=== PATIENT | female | born 1980 | race African-American/Black ===

== ENCOUNTER 2020-10-30 12:19 | Inpatient (IN) | payer MEDICAID ==
[~2020-10-30] VITALS: Ht 170.2 cm; Wt 68.0 kg
[2020-10-30] MEDS ORDERED: ONDANSETRON HCL 4MG/2ML INJ IV ONE (12:45)
[2020-10-30] MEDS ORDERED: AZITHROMYCIN 500 MG in DEXT 5% WATER 250 ML IV ONE (12:45)
[2020-10-30] MEDS ORDERED: DEXAMETHASONE 10 MG/ML VIAL IV ONE (12:45)
[2020-10-30] MEDS ORDERED: CEFTRIAXONE 1 G PREMIX 50 ML IV ONE (12:45)
[2020-10-30] MEDS ORDERED: SODIUM CHLORIDE 0.9% 1,000 ML IV ONE (12:45)
[2020-10-30 13:04] LABS: BASOPHILS % 0.6 % (0.0-2.0); EOSINOPHILS % 0.6 % (0.0-5.0); HEMATOCRIT. 42.9 % (36.0-48.0); HEMOGLOBIN. 14.3 g/dL (12.0-16.0); LYMPHOCYTES % 24.8 % (20.0-50.0); MEAN CORPUSCULAR HEMOGLOBIN 29.1 pg (28.0-32.0); MEAN CORPUSCULAR VOLUME 87.5 fL (81.0-99.0); MEAN PLATELET VOLUME 8.6 fl (7.4-10.4); MONOCYTES % 11.5 % (2.0-8.0); NEUTROPHILS % 62.5 % (40.0-76.0); PLATELET 348 x1000/uL (130-400); RED CELL DISTRIBUTION WIDTH 14.5 % (11.6-14.6)
[2020-10-30 13:05] LABS: CHLORIDE 109 mEq/L (98-107)
[2020-10-30 13:07] LABS: HCG SCREEN NEGATIVE
[2020-10-30 13:13] LABS: D-DIMER 0.82 mg/L FEU (<0.50); INR 1.1; PROTHROMBIN TIME 11.3 sec (9.6-11.0)
[2020-10-30 13:15] LABS: CREATINE KINASE 30 IU/L (26-192)
[2020-10-30 15:02] LABS: CLARITY URINE CLEAR (CLEAR); COLOR URINE YELLOW (YELLOW); KETONES URINE 1+ (NEGATIVE); LEUKOCYTE ESTERASE URINE NEGATIVE (NEGATIVE); NITRITE URINE NEGATIVE (NEGATIVE); OCCULT BLOOD URINE 3+ (NEGATIVE); PROTEIN URINE NEGATIVE (NEGATIVE); SPECIFIC GRAVITY URINE 1.008 (1.005-1.030); UROBILINOGEN URINE 0.2 E.U./dL (0.2-1.0)
[2020-10-30] MEDS ORDERED: ONDANSETRON HCL 4MG/2ML INJ IV PRN (15:30)
[2020-10-30] MEDS ORDERED: DIPHENHYDRAMINE 50MG/ML VIAL IV PRN (15:30)
[2020-10-30] MEDS ORDERED: CLONIDINE 0.1MG TABLET PO PRN (15:30)
[2020-10-30] MEDS: ENOXAPARIN 40MG/0.4ML SYR SUBCUT SCH (16:07)
[2020-10-30] MEDS ORDERED: LEVOTHYROXINE SODIUM 75MCG TABLET PO NR (16:30)
[2020-10-30] MEDS: ACETAMINOPHEN 325MG TABLET PO PRN (22:56)
[2020-10-31 03:30] VITALS: BP 111/76
[2020-10-31 06:49] LABS: BASOPHILS % 0.6 % (0.0-2.0); HEMATOCRIT. 39.8 % (36.0-48.0); HEMOGLOBIN. 13.5 g/dL (12.0-16.0); LYMPHOCYTES % 21.7 % (20.0-50.0); MEAN CORPUSCULAR HEMOGLOBIN 29.4 pg (28.0-32.0); MEAN CORPUSCULAR VOLUME 86.4 fL (81.0-99.0); MEAN PLATELET VOLUME 8.8 fl (7.4-10.4); MONOCYTES % 8.8 % (2.0-8.0); NEUTROPHILS % 68.9 % (40.0-76.0); PLATELET 368 x1000/uL (130-400)
[2020-10-31 07:23] LABS: CHLORIDE 110 mEq/L (98-107)
[2020-10-31 07:37] LABS: HDL CHOLESTEROL 32 mg/dL (40-59)
[2020-10-31 07:40] LABS: LDL CHOLESTEROL 100 mg/dL (5-100)
[2020-10-31] MEDS: ACETAMINOPHEN 325MG TABLET PO PRN (08:52)
[2020-10-31] MEDS: DEXAMETHASONE 10 MG/ML VIAL IV SCH (08:53)
[2020-10-31] MEDS: GUAIFENESIN-DM 200MG-20MG/10ML UDC PO PRN ×2 (09:45→23:45)
[2020-10-31] MEDS ORDERED: LEVO75TA7 MT (10:29)
[2020-10-31] MEDS: BENZONATATE 100MG CAPSULE PO SCH ×2 (10:37→21:04)
[2020-10-31 12:00] VITALS: BP 95/62
[2020-10-31] MEDS: LEVOTHYROXINE SODIUM 75MCG TABLET PO SCH (12:34)
[2020-10-31] MEDS: CEFTRIAXONE 1,000 MG in DEXTROSE 5% WATER 50 ML IV SCH (12:35)
[2020-10-31] MEDS ORDERED: CEFTRIAXONE 1 G PREMIX 50 ML IV SCH (13:00)
[2020-10-31] MEDS ORDERED: AZITHROMYCIN 500 MG in DEXT 5% WATER 250 ML IV SCH (15:00)
[2020-10-31] MEDS ORDERED: ALBUTEROL 6.7GM HFA INHALER ORI PRN (15:00)
[2020-10-31] MEDS: AZITHROMYCIN 500MG in DEXTROSE 5% WATER 250ML IV SCH (15:42)
[2020-10-31] MEDS: ENOXAPARIN 40MG/0.4ML SYR SUBCUT SCH (15:45)
[2020-10-31 15:49] VITALS: BP 102/67
[2020-10-31 20:00] VITALS: BP 99/65
[2020-11-01] VITALS: BP 95/66
[2020-11-01 04:00] VITALS: BP 97/65
[2020-11-01] MEDS: BENZONATATE 100MG CAPSULE PO SCH ×3 (05:08→22:10)
[2020-11-01] MEDS: ACETAMINOPHEN 325MG TABLET PO PRN (06:36)
[2020-11-01] MEDS: LEVOTHYROXINE SODIUM 75MCG TABLET PO SCH (06:45)
[2020-11-01 07:19] LABS: BASOPHILS % 0.4 % (0.0-2.0); HEMATOCRIT. 38.8 % (36.0-48.0); HEMOGLOBIN. 13.1 g/dL (12.0-16.0); LYMPHOCYTES % 17.6 % (20.0-50.0); MEAN CORPUSCULAR HEMOGLOBIN 29.4 pg (28.0-32.0); MEAN CORPUSCULAR VOLUME 87.2 fL (81.0-99.0); MEAN PLATELET VOLUME 8.7 fl (7.4-10.4); MONOCYTES % 9.3 % (2.0-8.0); NEUTROPHILS % 72.7 % (40.0-76.0); PLATELET 451 x1000/uL (130-400); RED BLOOD CELL COUNT 4.45 mill/uL (4.2-5.4); RED CELL DISTRIBUTION WIDTH 14.4 % (11.6-14.6)
[2020-11-01 07:22] LABS: CHLORIDE 112 mEq/L (98-107)
[2020-11-01 08:00] VITALS: BP 98/64
[2020-11-01] MEDS: DEXAMETHASONE 10 MG/ML VIAL IV SCH (08:14)
[2020-11-01 12:00] VITALS: BP 103/64
[2020-11-01] MEDS: CEFTRIAXONE 1,000 MG in DEXTROSE 5% WATER 50 ML IV SCH (12:41)
[2020-11-01] MEDS: AZITHROMYCIN 500MG in DEXTROSE 5% WATER 250ML IV SCH (14:32)
[2020-11-01] MEDS: ENOXAPARIN 40MG/0.4ML SYR SUBCUT SCH (15:48)
[2020-11-01 16:00] VITALS: BP 96/64
[2020-11-01 20:00] VITALS: BP 106/64
[2020-11-02] VITALS: BP 98/57
[2020-11-02 04:00] VITALS: BP 98/58
[2020-11-02] MEDS: ACETAMINOPHEN 325MG TABLET PO PRN (04:50)
[2020-11-02] MEDS: LEVOTHYROXINE SODIUM 75MCG TABLET PO SCH (06:42)
[2020-11-02] MEDS: BENZONATATE 100MG CAPSULE PO SCH ×3 (06:42→21:05)
[2020-11-02 07:33] LABS: BASOPHILS % 0.3 % (0.0-2.0); HEMATOCRIT. 38.6 % (36.0-48.0); LYMPHOCYTES % 22.5 % (20.0-50.0); MEAN CORPUSCULAR HEMOGLOBIN 29.3 pg (28.0-32.0); MEAN CORPUSCULAR VOLUME 87.2 fL (81.0-99.0); MEAN PLATELET VOLUME 8.6 fl (7.4-10.4); MONOCYTES % 11.7 % (2.0-8.0); NEUTROPHILS % 65.5 % (40.0-76.0); PLATELET 496 x1000/uL (130-400); RED BLOOD CELL COUNT 4.43 mill/uL (4.2-5.4); RED CELL DISTRIBUTION WIDTH 14.2 % (11.6-14.6)
[2020-11-02 08:00] VITALS: BP 107/72
[2020-11-02] MEDS: DEXAMETHASONE 10 MG/ML VIAL IV SCH (08:00)
[2020-11-02 08:05] LABS: CHLORIDE 112 mEq/L (98-107)
[2020-11-02 12:00] VITALS: BP 100/73
[2020-11-02 16:00] VITALS: BP 106/68
[2020-11-02] MEDS: ENOXAPARIN 40MG/0.4ML SYR SUBCUT SCH (16:01)
[2020-11-02 20:00] VITALS: BP 103/70
[2020-11-03] VITALS: BP 100/60
[2020-11-03 04:00] VITALS: BP 93/63
[2020-11-03] MEDS: ACETAMINOPHEN 325MG TABLET PO PRN (04:59)
[2020-11-03] MEDS: BENZONATATE 100MG CAPSULE PO SCH ×3 (05:00→21:03)
[2020-11-03] MEDS: LEVOTHYROXINE SODIUM 75MCG TABLET PO SCH (06:41)
[2020-11-03 08:00] VITALS: BP 94/56
[2020-11-03] MEDS: DEXAMETHASONE 10 MG/ML VIAL IV SCH (08:13)
[2020-11-03 12:00] VITALS: BP 96/65
[2020-11-03] MEDS: ENOXAPARIN 40MG/0.4ML SYR SUBCUT SCH (15:09)
[2020-11-03 16:00] VITALS: BP 101/69
[2020-11-03] MEDS ORDERED: SODIUM CHLORIDE 45ML SPRAY NS PRN (17:00)
[2020-11-03 20:00] VITALS: BP 92/63
[2020-11-04] VITALS: BP 93/52
[2020-11-04 04:00] VITALS: BP 101/50
[2020-11-04] MEDS: BENZONATATE 100MG CAPSULE PO SCH ×3 (06:13→21:24)
[2020-11-04] MEDS: LEVOTHYROXINE SODIUM 75MCG TABLET PO SCH (06:40)
[2020-11-04 08:00] VITALS: BP 88/53
[2020-11-04] MEDS: DEXAMETHASONE 10 MG/ML VIAL IV SCH (08:30)
[2020-11-04] MEDS: GUAIFENESIN-DM 200MG-20MG/10ML UDC PO PRN (09:29)
[2020-11-04 10:38] LABS: BG BASE EXCESS -0.6 mmol/L (-2.0-2.0); BG CARBOXYHEMOGLOBIN 0.1 % (0.5-1.5); BG DEOXYHEMOGLOBIN 12.8 % (0.0-5.0); BG FRACTION INSPIRED OXYGEN 21; BG HCO3 ACT 21.6 mmol/L (22.0-26.0); BG METHEMOGLOBIN 0.1 % (0.0-1.5); BG OXYGEN SATURATION 87.2 % (92.0-98.5); BG PCO2 29.1 mmHg (35.0-45.0); BG PH 7.488 (7.350-7.450); BG PO2 49.6 mmHg (75.0-100.0); BG SAMPLE SITE RIGHT RADIAL; BG TOTAL HEMOGLOBIN 14.4 g/dL (12.0-18.0); BG VENT MODE ROOM AIR
[2020-11-04 12:13] VITALS: BP 91/55
[2020-11-04] MEDS: ENOXAPARIN 40MG/0.4ML SYR SUBCUT SCH (15:55)
[2020-11-04 16:03] VITALS: BP 97/66
[2020-11-04 20:00] VITALS: BP 95/47
[2020-11-05] VITALS: BP 99/61
[2020-11-05 04:00] VITALS: BP 90/59
[2020-11-05] MEDS: LEVOTHYROXINE SODIUM 75MCG TABLET PO SCH (07:04)
[2020-11-05] MEDS: BENZONATATE 100MG CAPSULE PO SCH ×2 (07:04→13:13)
[2020-11-05 08:00] VITALS: BP 91/56
[2020-11-05] MEDS: DEXAMETHASONE 10 MG/ML VIAL IV SCH (08:05)
[2020-11-05 12:00] VITALS: BP 101/68
[2020-11-05] MEDS: ENOXAPARIN 40MG/0.4ML SYR SUBCUT SCH (15:11)
[2020-11-05 16:00] VITALS: BP 93/56
[2020-11-05 20:30] VITALS: BP 97/63
[2020-11-06] VITALS: BP 101/75
[2020-11-06] MEDS: LEVOTHYROXINE SODIUM 75MCG TABLET PO SCH (06:39)
[2020-11-06] MEDS: BENZONATATE 100MG CAPSULE PO SCH ×2 (06:39→13:43)
[2020-11-06 08:00] VITALS: BP 104/68
[2020-11-06] MEDS: DEXAMETHASONE 10 MG/ML VIAL IV SCH (08:01)
[2020-11-06] MEDS: ACETAMINOPHEN 325MG TABLET PO PRN (08:01)
[2020-11-06] MEDS ORDERED: DEXA6TAB MT (11:33)
[2020-11-06] MEDS ORDERED: TUSSL PO (11:33)
[2020-11-06] MEDS ORDERED: BENZ100C86 PO (11:33)
[2020-11-06 12:00] VITALS: BP 95/64
[2020-11-06 12:25] VITALS: BP 95/64
[2020-11-06 16:00] VITALS: BP 99/63
[2020-11-06] MEDS ORDERED: LEVO75TA7 MT (16:02)
== END 2020-11-06 15:06 | disposition home or self-care (01) | DRG 720 ==
LOC: ER 12:31 → MICUSO 14:25 → 7WST 10-31 01:26
PROVIDERS: ADMIT Internal Medicine; ATTEND Internal Medicine
DX: A41.89 Other specified sepsis (principal); U07.1 COVID-19; J96.01 Acute respiratory failure with hypoxia; J12.82 Pneumonia due to coronavirus disease 2019; E03.9 Hypothyroidism, unspecified; R74.01 Elevation of levels of liver transaminase levels; R74.02 Elevation of levels of lactic acid dehydrogenase [LDH]; R79.82 Elevated C-reactive protein (CRP)
CPT/HCPCS: 36415; 36600; 71045; 80048; 80053; 80061; 81003; 82375; 82550; 82728; 82805; 83605; 83615; 83880; 84145; 84443; 84484; 84703; 85025; 85379; 85384; 86140; 93005; 99291; J0456; J0696; J1100; J1650; J2405; J7030; J7040; J7060; U0003

== ENCOUNTER 2020-11-10 15:29 | Emergency (ER) | payer MEDICAID ==
[~2020-11-10] VITALS: Ht 167.6 cm; Wt 69.0 kg
[~2020-11-10 15:29] MED LIST: BENZ100C86 PO; DEXA6TAB MT; LEVO75TA7 MT; TUSSL PO
[2020-11-10 16:25] LABS: BASOPHILS % 0.5 % (0.0-2.0); EOSINOPHILS % 0.3 % (0.0-5.0); HEMATOCRIT. 40.4 % (36.0-48.0); HEMOGLOBIN. 13.4 g/dL (12.0-16.0); MEAN CORPUSCULAR HEMOGLOBIN 28.8 pg (28.0-32.0); MEAN CORPUSCULAR VOLUME 86.9 fL (81.0-99.0); MEAN PLATELET VOLUME 8.5 fl (7.4-10.4); MONOCYTES % 11.7 % (2.0-8.0); NEUTROPHILS % 68.5 % (40.0-76.0); PLATELET 351 x1000/uL (130-400); RED BLOOD CELL COUNT 4.65 mill/uL (4.2-5.4)
[2020-11-10 16:29] LABS: CHLORIDE 109 mEq/L (98-107)
[2020-11-10 18:00] VITALS: BP 109/68
[2020-11-10] MEDS ORDERED: GUAI120L58 MT (18:37)
[2020-11-10] MEDS ORDERED: IOHEXOL 350 MG/ML 200ML INFUS..BTL IV ONE (18:42)
== END 2020-11-10 18:53 | disposition home or self-care (01) ==
LOC: ER 15:34
DX: U07.1 COVID-19 (principal); R07.89 Other chest pain; R06.02 Shortness of breath; E03.9 Hypothyroidism, unspecified; Z79.899 Other long term (current) drug therapy; Z88.2 Allergy status to sulfonamides
CPT/HCPCS: 36415; 71045; 71275; 80053; 84484; 85025; 85379; 93005; 99285; Q9967; Z7610

== ENCOUNTER 2021-07-04 04:13 | Emergency (ER) | payer MEDICAID ==
[~2021-07-04] VITALS: Ht 160 cm; Wt 77.0 kg
[~2021-07-04 04:13] MED LIST changes: +GUAI120L58 MT
[2021-07-04] MEDS ORDERED: ACETAMINOPHEN WITH CODEINE 300/30MG TABLET PO ONE (06:00)
[2021-07-04 06:20] LABS: CLARITY URINE CLEAR (CLEAR); COLOR URINE DARK YELLOW (YELLOW); KETONES URINE NEGATIVE (NEGATIVE); LEUKOCYTE ESTERASE URINE 3+ (NEGATIVE); NITRITE URINE NEGATIVE (NEGATIVE); OCCULT BLOOD URINE 2+ (NEGATIVE); PH URINE 6.5 (4.5-8.0); PROTEIN URINE NEGATIVE (NEGATIVE); SPECIFIC GRAVITY URINE 1.006 (1.005-1.030); UROBILINOGEN URINE 0.2 E.U./dL (0.2-1.0)
[2021-07-04] MEDS ORDERED: LEVO250T58 PO (07:21)
[2021-07-04] MEDS ORDERED: TOPUD PO (07:21)
[2021-07-04 07:50] VITALS: BP 113/74
== END 2021-07-04 07:50 | disposition home or self-care (01) ==
LOC: ER 04:13
DX: N81.4 Uterovaginal prolapse, unspecified (principal); E11.9 Type 2 diabetes mellitus without complications; Z88.2 Allergy status to sulfonamides; Z79.899 Other long term (current) drug therapy
CPT/HCPCS: 81003; 99285

== ENCOUNTER 2024-06-26 21:23 | Emergency (ER) | payer MEDICAID, OTHER ==
[~2024-06-26] VITALS: Ht 160 cm; Wt 79.0 kg
[~2024-06-26 21:23] MED LIST changes: +ASPI-1406 MT; +ATOR20TA65 MT; -BENZ100C86 PO; -DEXA6TAB MT; -GUAI120L58 MT; +MIDO5TAB4 MT; +TOPUD PO; -TUSSL PO
[2024-06-26 21:32] VITALS: O2SAT 98
[2024-06-26] MEDS ORDERED: PHEN51GE9 TP (22:24)
[2024-06-26] MEDS ORDERED: HYDR453.3 TP (22:24)
[2024-06-26 23:13] VITALS: BP 135/78; PULSE 90; RESP 16; TEMP 36.83628; O2SAT 98
[2024-06-26] MEDS: KETOROLAC 15MG/ML VIAL IM ONE (23:13)
== END 2024-06-26 23:15 | disposition home or self-care (01) ==
LOC: ER 21:23
DX: K64.4 Residual hemorrhoidal skin tags (principal); J45.909 Unspecified asthma, uncomplicated; E03.9 Hypothyroidism, unspecified; Z90.710 Acquired absence of both cervix and uterus; Z79.899 Other long term (current) drug therapy; Z88.2 Allergy status to sulfonamides; Z79.82 Long term (current) use of aspirin
CPT/HCPCS: 99283; 81025; 96372; J1885